=== PATIENT | male | born 1970 | race Caucasian/White ===

== ENCOUNTER → 2020-02-02 13:04 | Outpatient (CLI) | payer BC, SELFPAY ==
--- NOTE | ~2020-02-02 | XR_ITS ---
EXAMINATION: XR hand LT 2V INDICATION: Superficial foreign body of the left hand TECHNIQUE: Two views of the left hand are obtained. COMPARISON: None available FINDINGS: There is no fracture, dislocation, or subluxation. The bones, soft tissues, and joint space s are normal. IMPRESSION: 1. No acute osseous abnormality. Reviewed, dictated and finalized at location A.
== END ==
PROVIDERS: PCP Family Medicine; Visit Provider Family Medicine
DX: S60.559A Superficial foreign body of unspecified hand, initial encounter (principal)
CPT/HCPCS: 73120

== ENCOUNTER 2020-03-27 06:46 | Outpatient (NON) | payer BC, SELFPAY ==
[2020-03-27 18:59] LABS: SARS-CoV-2 RNA PCR Negative
== END 2020-03-27 06:47 ==
PROVIDERS: PCP Family Medicine; Visit Provider Family Medicine
DX: Z20.828 Contact with and (suspected) exposure to other viral communicable diseases (principal)
CPT/HCPCS: 87635; C9803; U0003

== ENCOUNTER 2023-03-09 14:13 | Outpatient (CLI) | payer BC, SELFPAY ==
--- NOTE | ~2023-03-09 | CT_ITS ---
EXAMINATION: CT lung screening DATE: 03/09/2023 14:33 INDICATION: Personal history nicotine dependence, current smoker with 25 pack year history TECHNIQUE: Computed tomography (CT) of the chest was performed without intravenous contrast. The dose -length product (DLP) was 134.35 mGy-cm. Automated exposure control and iterative reconstruction tech [employer] were employed. COMPARISON: None FINDINGS: There is mild emphysema. No suspicious pulmonary nodules are identified. The lungs are free of acute opacities. No pleural effusion or pneumothorax. No pathologically enlarged thoracic lymph n odes are identified. The heart size is normal. Calcified coronary artery atherosclerosis is noted. Th ere is moderate thoracic spondylosis. There is a small fat-containing posteromedial diaphragmatic her alireza on the right. IMPRESSION: 1. Lung-RADS category 1: Negative. Continue annual screening with noncontrast low-dose chest CT in 12 months. Reviewed, dictated and finalized at location B. IMPRESSION: 1. Lung-RADS category 1: Negative. Continue annual screening with noncontrast l ow-dose chest CT in 12 months.
== END 2023-03-09 14:14 | disposition home or self-care (01) ==
PROVIDERS: PCP Family Medicine; Visit Provider Physician Assistant
DX: Z12.2 Encounter for screening for malignant neoplasm of respiratory organs (principal); Z87.891 Personal history of nicotine dependence
CPT/HCPCS: 71271

== ENCOUNTER 2023-05-11 10:49 | Outpatient (CLI) | payer BC, SELFPAY ==
--- NOTE | ~2023-05-11 | XR_ITS ---
EXAMINATION: XR ankle RT min 3V INDICATION: Right ankle pain TECHNIQUE: Four views of the right ankle are obtained. COMPARISON: None available FINDINGS: Bone alignment is normal. There is no fracture. The soft tissues are unremarkable. A planta r calcaneal enthesophyte is noted. IMPRESSION: 1. No acute osseous abnormality. Reviewed, dictated and finalized at location F. [employer]
--- NOTE | ~2023-05-11 | XR_ITS ---
EXAMINATION: XR knee RT 3V DATE: 05/11/2023 11:22 INDICATION: Right knee pain TECHNIQUE: Three views of the right knee were obtained. COMPARISON: None. FINDINGS: Alignment is normal. No fracture or osteochondral lesion. There is mild tricompartmental os teoarthritis characterized by tiny marginal osteophytes. There is a moderate size knee joint effusion . Soft tissues are unremarkable. IMPRESSION: 1. Moderate size knee joint effusion and osteoarthritis without acute osseous abnormality identified. Reviewed, dictated and finalized at location F. [employer] IMPRESSION: 1. Moderate size knee joint effusion and osteoarthritis without acute osseous a bnormality identified.
== END 2023-05-11 10:50 | disposition home or self-care (01) ==
PROVIDERS: PCP Family Medicine; Visit Provider Physician Assistant
DX: S89.90XA Unspecified injury of unspecified lower leg, initial encounter (principal); S99.919A Unspecified injury of unspecified ankle, initial encounter; X58.XXXA Exposure to other specified factors, initial encounter; M25.461 Effusion, right knee; M17.11 Unilateral primary osteoarthritis, right knee
CPT/HCPCS: 73562; 73610